=== PATIENT | female | born 1960 | race Caucasian/White ===

== ENCOUNTER → 2024-10-19 07:37 | Outpatient (CLI) | payer MEDICARE, SELFPAY ==
--- NOTE | 2024-10-19 07:38 | DI.CT.S_ITS ---
PROCEDURE: CT SINUS SCREEN WO CON INDICATIONS: chronic headaches and chronic sinusitis TECHNIQUE: Noncontrast 3.0 mm axial images acquired from the frontal sinuses to the mid-sella, with coronal and sagittal reformats. For radiation dose reduction, the following was used: automated exposure control, adjustment of mA and/or kV according to patient size. COMPARISON: None. FINDINGS: Image quality: Excellent. Maxillary Sinuses: No bony remodeling or destruction. Sinuses are clear. Ethmoid Air Cells: No bony remodeling or destruction. Sinuses are clear. Sphenoid Sinuses: No bony remodeling or destruction. Sinuses are clear. Frontal Sinuses: No bony remodeling or destruction. Sinuses are clear. The frontal sinuses are poorly developed. Ostiomeatal Complexes: The ostiomeatal complexes are patent, yet they are mildly constitutionally narrowed, with bilateral Bhavik cells. Miscellaneous: Visualized intra-orbital contents are normal. No solitario bullosa or paradoxical turbinate curvature. There is mild leftward nasal septal deviation. Cervical spine degenerative change is partially seen. IMPRESSION: No significant active paranasal sinus disease is seen. Mildly constitutionally narrowed ostiomeatal complexes. Mild leftward nasal septal deviation. Dictated by: Merlin Lenz M.D. on 10/19/2024 at 14:30 Approved by: Merlin Lenz M.D. on 10/19/2024 at 14:31
== END ==
PROVIDERS: PCP Student in an Organized Health Care Education/Training Program; Referring Provider Student in an Organized Health Care Education/Training Program; Visit Provider Student in an Organized Health Care Education/Training Program
DX: R51.9 Headache, unspecified (principal); J32.9 Chronic sinusitis, unspecified; J34.2 Deviated nasal septum; G89.29 Other chronic pain
CPT/HCPCS: 70486

== ENCOUNTER 2024-12-06 17:52 | Emergency (ER) | payer MEDICARE, SELFPAY ==
[2024-12-06 17:56] VITALS: BP 131/59; PULSE 57; RESP 14; TEMP 37; O2SAT 100; BMI 54.4
--- NOTE | 2024-12-06 18:02 | DI.RAD.S_ITS ---
PROCEDURE: XR ANKLE LT MIN 3V INDICATIONS: rolling injury, non WB TECHNIQUE: 3 views of the ankle were acquired. COMPARISON: None. FINDINGS: Bones: Mildly displaced medial malleolar fracture. Overlying soft tissue swelling. Possible nondisplaced distal fibula/lateral malleolar fracture. Ankle mortise appears intact. Degenerative changes of the left ankle. Prominent retrocalcaneal enthesophyte. Small plantar calcaneal enthesophyte. Soft tissues: Small anterior tibiotalar joint effusion. Achilles tendon appears normal. IMPRESSION: Medial malleolar fracture with overlying soft tissue swelling and small tibiotalar joint effusion. Possible nondisplaced distal fibula/lateral malleolar fracture. Dictated by: Lukas Hernandez M.D. on 12/06/2024 at 19:36 Approved by: Lukas Hernandez M.D. on 12/06/2024 at 19:38
--- NOTE | 2024-12-06 22:05 | ED.LOWEXIN ---
HPI - Extremity Injury (Lower) General Chief Complaint: Extremity Injury, Lower Stated Complaint: L Ankle Inury Source: patient Mode of arrival: Wheelchair Limitations: no limitations Related Data Home Medications Medication Instructions Recorded Confirmed thyroid (pork) 60 mg tablet 60 mg PO DAILY 10/03/24 11/02/24 ([facility]) Previous Rx's Medication Instructions Recorded rizatriptan 10 mg tablet See Rx Instructions PO .COMPLEX 10/29/24 #20 tabs propranolol 40 mg tablet 40 mg PO BID #30 tabs 11/02/24 Allergies Allergy/AdvReac Type Severity Reaction Status Date / Time codeine AdvReac Severe sick Verified 11/02/24 07:57 Patient History Social History Smoking Status: Never smoker Smoking Status: Never smoker Exam Initial Vital Signs Initial Vital Signs: Vital Signs Temperature 98.6 F 12/06/24 17:56 Pulse Rate 57 L 12/06/24 17:56 Respiratory Rate 14 12/06/24 17:56 Blood Pressure 131/59 L 12/06/24 17:56 Pulse Oximetry 100 12/06/24 17:56 Oxygen Delivery Method Room Air 12/06/24 17:56 Course Orders Ordered: ED Orders 12/06/24 18:02 XR ankle LT min 3V Stat Vital Signs Vital signs: Vital Signs - 8 hr 12/06/24 17:56 Temperature 98.6 F Pulse Rate 57 L Respiratory Rate 14 Blood Pressure 131/59 L Pulse Oximetry 100 Oxygen Delivery Method Room Air MDM - Extremity Injury (Lower) MDM Narrative Medical decision making narrative: L ankle xray Medial malleolar fracture overlying soft tissue swelling small tibiotalar joint effusion possible nondisplaced distal fibula/lateral malleolar fracture. Spoke with Dr. Tripp @ [id number] images were reviewed. We would be operative would recommend splint and follow up outpatient. Patient left without being seen. Nursing reaching out to patient. So far have received a busy signal @ [id number] Called [phone] and [phone] both numbers in patient demographics in EMR multiple times myself. They both have only busy signal. Will have letter sent to patient as she needs splint, toe-touch weight-bearing and follow up with the orthopedic surgery. Discharge Plan Departure Patient Disposition: Left Without Being Seen Clinical Impression: Ankle fracture Prescriptions: No Action propranolol 40 mg tablet 40 mg PO BID Qty: 30 3RF thyroid (pork) [[facility]] 60 mg tablet 60 mg PO DAILY rizatriptan 10 mg tablet See Rx Instructions PO .COMPLEX Qty: 20 1RF Rx Instructions: take 1 tablet at onset of headache; if no relief, may repeat 1 tablet after at least 2 hrs PO
--- NOTE | 2024-12-07 06:09 | PC.NURSE ---
attempted to call pt this am, left message on answering machine to return call
--- NOTE | 2024-12-07 07:09 | PC.NURSE ---
pt returned call and stated that she knew we were busy yesterday so she left and went to another hospital where she found out that her ankle was broken. This nurse told her when we got the results of the xr and found out she left we wanted to call her and make sure she got her ankle taken care of. She stated yes and she thanked us for calling and checking on her.
== END 2024-12-06 20:45 | disposition left against medical advice (07) ==
PROVIDERS: Emergency Provider Emergency Medicine; PCP Student in an Organized Health Care Education/Training Program
DX: S82.52XA Displaced fracture of medial malleolus of left tibia, initial encounter for closed fracture (principal); X50.1XXA Overexertion from prolonged static or awkward postures, initial encounter
CPT/HCPCS: 73610; 99281